=== PATIENT | female | born 1965 | race Caucasian/White ===

== ENCOUNTER 2022-08-08 17:56 | Emergency (ER) | payer OTHER, SELFPAY ==
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
[2022-08-08 18:46] VITALS: BP 142/70; PULSE 74; RESP 16; TEMP 36.1; O2SAT 100
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
[2022-08-08] MEDS: ACETAMINOPHEN 500 MG TABLET 1000 MG PO (21:22)
[2022-08-08 23:07] VITALS: TEMP 36.5
== END 2022-08-08 23:13 | disposition home or self-care (01) ==
PROVIDERS: Emergency Provider Emergency Medicine
DX: S16.1XXA Strain of muscle, fascia and tendon at neck level, initial encounter (principal); D32.0 Benign neoplasm of cerebral meninges; I67.2 Cerebral atherosclerosis; M50.322 Other cervical disc degeneration at C5-C6 level; V49.50XA Passenger injured in collision with unspecified motor vehicles in traffic accident, initial encounter
CPT/HCPCS: 70450; 72125; 99284; A9270

== ENCOUNTER 2022-09-02 08:45 | Outpatient (CLI) | payer OTHER, SELFPAY ==
--- NOTE | ~2022-09-02 | MR_ITS ---
EXAMINATION: MR brain/brain stem wo/w con DATE: 09/02/2022 09:25 INDICATION: Mass of brain. TECHNIQUE: Magnetic resonance imaging (MRI) of the brain and brainstem was performed without and with 12 mL MultiHance intravenous contrast. COMPARISON: Head CT 08/08/2022 FINDINGS: There is no intracranial hemorrhage or acute ischemic infarct. In the parafalcine right par ietal region, there is an 18 x 13 x 13 mm enhancing extra-axial mass, consistent with a meningioma. T here are scattered areas of nonspecific increased T2-weighted signal intensity in the cerebral white matter, which is within normal limits for the patient's age. The ventricles are normal in size. The o rbits are normal. The mastoid air cells are normal. The paranasal sinuses are clear. IMPRESSION: 1. 18 mm right parafalcine meningioma. Reviewed, dictated and finalized at location A. CAL DOCTOR
== END 2022-09-02 08:46 | disposition home or self-care (01) ==
PROVIDERS: PCP Student in an Organized Health Care Education/Training Program; Visit Provider Student in an Organized Health Care Education/Training Program
DX: G93.89 Other specified disorders of brain (principal)
CPT/HCPCS: 70553; A9577

== ENCOUNTER 2023-03-03 10:33 | Outpatient (CLI) | payer BC, SELFPAY ==
--- NOTE | ~2023-03-03 | CT_ITS ---
EXAMINATION: CT brain wo con DATE: 03/03/2023 11:49 INDICATION: Head injury. TECHNIQUE: Computed tomography (CT) of the head was performed without intravenous contrast. The mA wa s adjusted according to patient size. Iterative reconstruction technique was employed. The dose-lengt h product was 605.33 mGy-cm. COMPARISON: Head CT 08/08/2022, brain MRI 09/02/2022 FINDINGS: There is a 1.6 cm calcified extra-axial mass at the falx on the right adjacent to the parie pranav lobe, consistent with a meningioma. There is no intracranial hemorrhage or acute ischemic infarct . The ventricles are normal in size. The orbits are normal. The paranasal sinuses are clear. The mast oid air cells are normal. IMPRESSION: 1. Stable 1.6 cm calcified right parafalcine meningioma. Reviewed, dictated and finalized at location A.
== END 2023-03-03 10:34 | disposition home or self-care (01) ==
LOC: ANHIMG 10:39
PROVIDERS: PCP Student in an Organized Health Care Education/Training Program; Visit Provider Student in an Organized Health Care Education/Training Program
DX: S09.90XA Unspecified injury of head, initial encounter (principal); X58.XXXA Exposure to other specified factors, initial encounter
CPT/HCPCS: 70450

== ENCOUNTER 2024-03-01 14:16 | Outpatient (CLI) | payer BC, SELFPAY ==
--- NOTE | ~2024-03-01 | MM_ITS ---
EXAMINATION: MM screening arcadio BI w neli HISTORY: Screening mammogram TECHNIQUE: Craniocaudal and mediolateral oblique 3-D tomosynthesis images were obtained and synthetic 2-D images were generated. CAD analysis was submitted and interpreted. COMPARISON: 09/17/2019 bilateral screening mammogram BREAST PARENCHYMAL COMPOSITION: The breasts are extremely dense, which lowers the sensitivity of mamm ography. FINDINGS: There is no evidence of suspicious mass, calcification, or architectural distortion to sugg est malignancy in either breast. There has been no suspicious interval change. IMPRESSION: 1. No mammographic evidence of malignancy. 2. Recommend routine screening mammography in one year. BI-RADS Category 1: Negative Reviewed, dictated and finalized at location B.
== END 2024-03-01 14:17 | disposition home or self-care (01) ==
PROVIDERS: PCP Family Medicine; Visit Provider Family Medicine
DX: Z12.31 Encounter for screening mammogram for malignant neoplasm of breast (principal)
CPT/HCPCS: 77063; 77067

== ENCOUNTER 2024-05-27 08:17 | Outpatient (CLI) | payer BC, SELFPAY ==
--- NOTE | ~2024-05-27 | MR_ITS ---
EXAMINATION: MR brain/brain stem wo/w con DATE: 05/27/2024 09:11 INDICATION: Benign neoplasm of cerebral meninges. TECHNIQUE: Magnetic resonance imaging (MRI) of the brain and brainstem was performed without and with 12 mL MultiHance intravenous contrast. COMPARISON: Brain MRI 09/02/2022, head CT 03/03/2023 FINDINGS: There is no acute ischemic infarct or intracranial hemorrhage. There is a 2.0 x 1.5 x 1.5 c m right parietal parafalcine enhancing mass, consistent with a meningioma. There are scattered areas of nonspecific increased T2-weighted signal intensity in the cerebral white matter, which is within n ormal limits for the patient's age. The ventricles are normal in size. There is a right mastoid effus ion. The orbits are normal. The paranasal sinuses are clear. IMPRESSION: 1. 2.0 cm right parafalcine meningioma that measured 1.8 cm on 09/02/2022. Reviewed, dictated and finalized at location A.
== END 2024-05-27 08:18 | disposition home or self-care (01) ==
PROVIDERS: PCP Family Medicine; Visit Provider Neurological Surgery
DX: D32.0 Benign neoplasm of cerebral meninges (principal)
CPT/HCPCS: 70553; A9577

== ENCOUNTER 2025-03-19 13:35 | Outpatient (CLI) | payer BC, SELFPAY ==
--- OUTSIDE RECORDS SUMMARY | 2025-03-19 13:40 | XMS_ITS | Clinical Summary ---
Author Organization [facility] Address [address] [place] [id number] Care Team Providers Care Timber Harvester Operator Name Role Phone Tracy Fall MD Primary Care Provider [phone] Allergies Active Allergy Reactions Criticality Noted Date Comments Penicillins Rash Medium 06/05/2024 Medications No known medications Active Problems Problem Noted Date Diagnosed Date Screen for colon cancer 06/05/2024 Surgical History Surgery Date Site/Laterality Comments APPENDECTOMY ROTATOR CUFF REPAIR Bilateral pin in left shoulder Medical History Medical History Date Comments Chronic constipation Family History Medical History Relation Name Comments Colon polyps Brother Relation Name Status Comments Brother Social History Tobacco Use Types Packs/Day Years Used Date Smoking Tobacco: Never Smokeless Tobacco: Never Tobacco Cessation:Counseling Given: Not Answered AUDIT-C Answer Date Recorded Q1: How often do you have a drink containing alc ohol? 2-4 times a month 09/16/2024 Q2: How many drinks containi ng alcohol do you have on a typical day when you are drinking? 1 or 2 09/16/2024 Q3: How often do you have si x or more drinks on one occasion? Never 09/16/2024 Personal Safety Answer Date Recorded Have you ever been in or are you currently in a harmful physical or emotional relationship or is someone making you feel afraid or unsafe? Denies 09/16/2024 Comments No Sex and Gender Information Value Date Recorded Sex Assigned at Not on file Legal Sex Female 9:23 PM CDT Gender Identity Not on file Sexual Orientation Not on file Obstetrics History Last Filed Vital Signs Vital Sign Reading Time Taken Comments Blood Pressure 109/65 09/16/2024 2:20 PM VEHICLE UPHOLSTERER Pulse 68 09/16/2024 2:20 PM VEHICLE UPHOLSTERER Temperature 36.3 C (97.4 F) 09/16/2024 2:01 PM VEHICLE UPHOLSTERER Respiratory Rate 16 09/16/2024 2:20 PM VEHICLE UPHOLSTERER Oxygen Saturation 99% 09/16/2024 2:20 PM VEHICLE UPHOLSTERER Inhaled Oxygen Concentration - - Weight 65.8 kg (145 lb) 09/16/2024 1:25 PM VEHICLE UPHOLSTERER Height 152.4 cm (5') 09/16/2024 1:25 PM VEHICLE UPHOLSTERER Body Mass Index 28.32 09/16/2024 1:25 PM VEHICLE UPHOLSTERER Plan of Treatment Health Maintenance Due Date Last Done Comments Breast Cancer Screening-Mammogram 1965 Cervical Cancer Screening 1965 Depression Screening 1965 Hepatitis C Screening 1965 DTaP/Tdap/Td Vaccine (1 - Tdap) 1974 Hepatitis B Screening 1981 Regular Well Visit/Exam 18-64 1981 Zoster Vaccine (1 of 2) 2013 Influenza Vaccine (Season Ended) 2025 Colon Cancer Screening-Colonoscopy 09/16/20342023 Pneumococcal vaccine <65 Aged Out No longer eligible based on patient's age to complete this topic Procedures Procedure Name Priority Date/Time Associated Diagnosis Comments COLONOSCOPY 09/16/2024 1:25 PM VEHICLE UPHOLSTERER from Last 3 Months or Most Recently Relevant to Health Maintenance Results * Colonoscopy (09/16/2024 1:25 PM VEHICLE UPHOLSTERER) Anatomical Region Laterality Modality Other Narrative Procedure Note Abdirashid Abarca MD - 09/16/2024 1:[address] [facility] GI Lab Report Patient Name: Procedure Date: 09/16/2024 1:25 PM Date of : 1965 Admit Type: Outpatient Age: 58 Gender: Female Note Status: Finalized Attending MD: Abdiarshid Abarca M.D. Procedure: Colonoscopy Procedure Date: 09/16/2024 1:25:43 PM Indications: [facility]: Family history of 1st-degree relative with colon polyps at age 60 years (or older) - brother withcolon polyps in his 70s, This is the patient's first colonoscopy Providers: Abdirashid Abarca M.D. Referring Physician: Tracy Fall M.D. Medicines: Monitored Anesthesia Care Complications: No immediate complications. Procedure: Pre-Anesthesia Assessment: - Artificial Intelligence (AI) was used during this examination, using GI Genius. - Prior to the procedure, a History and Physicalwas performed, and patient medications and allergieswere reviewed. The patient's tolerance of previous anesthesia was also reviewed. The risks andbenefits of the procedure and the sedation options and risks were discussed with the patient. All questions were answered, and informed consent was obtained. Prior Anticoagulants: The patient has taken noanticoagulant or antiplatelet agents. ASA Grade Assessment: II -A patient with mild systemic disease. After reviewing the risks and benefits, the patient was deemed in satisfactory condition to undergo the procedure. - The risks and benefits of the procedure and the sedation options and risks were discussed with the patient. All questions were answered and informed consent was obtained. - Patient identification and proposed procedurewere verified prior to the procedure by the physician,the nurse, the anesthesiologist and the glass etcher.The procedure was verified in the pre-procedure area in the procedure room in the endoscopy suite. - After reviewing the risks and benefits, thepatient was deemed in satisfactory condition to undergo the procedure. - The anesthesia plan was to use monitoredanesthesia care (MAC). The benefits, risks and alternatives of theprocedure and sedation were discussed and informed consentwas obtained. All questions were answered. Please referto the signed informed consent document in the medical record. The scope was passed under direct vision.The Colonoscope was introduced through the anus and advanced to the the terminal ileum, with identification of the appendiceal orifice and IC valve. The colonoscopy was performed without difficulty. The patient tolerated the procedurewell. The quality of the bowel preparation was good. The bowel preparation used was GoLYTELY via split dose instruction. The terminal ileum, ileocecal valve, appendiceal orifice, and rectum werephotographed. Findings: Skin tags were found on perianal exam. The terminal ileum appeared normal. Two sessile polyps were found in the descending colon and ascending colon. The polyps were 5 to 9 mm in size. These polyps were removedwith a cold snare. Resection and retrieval were complete. Scattered small-mouthed diverticula were found in the sigmoidcolon. Internal hemorrhoids were found during retroflexion. The hemorrhoids were small and Grade I (internal hemorrhoids that do not prolapse). The exam was otherwise without abnormality. Estimated Blood Loss: Estimated blood loss: none. Impression: - Perianal skin tags found on perianal exam. - The examined portion of the ileum was normal. - Two 5 to 9 mm polyps in the descending colon andin the ascending colon, removed with a cold snare. Resected and retrieved. - Diverticulosis in the sigmoid colon. - Internal hemorrhoids. - The examination was otherwise normal. Recommendation: - Patient has a contact number available for emergencies. The signs and symptoms of potential delayed complications were discussed with thepatient. Return to normal activities tomorrow. Written discharge instructions were provided to thepatient. - High fiber diet. - Continue present medications. - Await pathology results. - Repeat colonoscopy in 5 years for surveillancebased on pathology results. - Return to GI office PRN. Procedure Code(s): --- Professional --- 20717, 33 Diagnosis Code(s): --- Professional --- Z83.71 D12.4 D12.2 K57.30 K64.0 K64.4 CPT copyright 2020 [employer]. All rights reserved. Signed electronically by Dr Abarca Abdirashid Abarca M.D. 09/16/2024 2:02:30 PM This report has been signed electronically. Number of Addenda: 0 Note Initiated On: 09/16/2024 1:25 PM Abdirashid Abarca MD ENDOSCOPY PROCEDURES Final Resu lt from Last 3 Months or Most Recently Relevant to Health Maintenance Insurance [employer] ACCESS CHOICE [employer] ACCESS CHOICE Advance Directives For more information, please contact: [phone] * Full Code (Latest Code Status on File) Date Activated Date Inactivated Comments 09/16/2024 1:25 PM 09/16/2024 6:40 PM Care Teams Timber Harvester Operator Relationship Specialty Start Date End Date Tracy Fall MD [address] [place] [address] PCP - General Family Medicine 05/25/24
--- OUTSIDE RECORDS SUMMARY | 2025-03-19 13:40 | XMS_ITS | Referral Summary ---
Author Organization [address] Address [address] [place] [id number] Care Team Providers Care Dust Mop Maker Name Role Phone Tracy Fall MD Primary Care Provider [phone] Allergies Active Allergy Reactions Criticality Noted Date Comments Penicillins Rash Medium 06/05/2024 Medications No known medications Active Problems Problem Noted Date Diagnosed Date Screen for colon cancer 06/05/2024 Social History Tobacco Use Types Packs/Day Years [...] on file Sexual Orientation Not on file Last Filed Vital Signs Vital Sign Reading Time Taken Comments Blood Pressure 109/65 09/16/2024 2:20 PM CANINE DEPUTY Pulse 68 09/16/2024 2:20 PM CANINE DEPUTY Temperature 36.3 C (97.4 F) 09/16/2024 2:01 PM CANINE DEPUTY Respiratory Rate 16 09/16/2024 2:20 PM CANINE DEPUTY Oxygen Saturation 99% 09/16/2024 2:20 PM CANINE DEPUTY Inhaled Oxygen Concentration - - Weight 65.8 kg (145 lb) 09/16/2024 1:25 PM CANINE DEPUTY Height 152.4 cm (5') 09/16/2024 1:25 PM CANINE DEPUTY Body Mass Index 28.32 09/16/2024 1:25 PM CANINE DEPUTY Plan of Treatment Not on file Procedures Procedure Name Priority Date/Time Associated Diagnosis Comments COLONOSCOPY 09/16/2024 1:25 PM CANINE DEPUTY from Last 3 Months or Most Recently Relevant to Health Maintenance Results * Colonoscopy (09/16/2024 1:25 PM CANINE DEPUTY) Anatomical Region Laterality Modality Other Narrative Procedure Note Abdirashid Abarca MD - 09/16/2024 1:25 PM CST [facility] GI Lab Report Patient Name: Procedure Date: 09/16/2024 1:25 PM Date of : 1965 Admit Type: Outpatient Age: 58 Gender: Female Note Status: Finalized Attending MD: Abdirashid Abarca M.D. Procedure: Colonoscopy Procedure Date: 09/16/2024 1:25:43 PM Ind[facility] Family history of 1st-degree relative with colon [...] the physician,the nurse, the anesthesiologist and the volleyball assistant coach.The procedure was verified in the pre-procedure area [...] office PRN. Procedure Code(s): --- Professional --- 42252, 33 Diagnosis Code(s): --- Professional --- Z83.71 D12.4 D12.2 K57.30 K64.0 K64.4 CPT copyright 2020 [employer]. All rights reserved. Signed electronically by Dr Abarca Abdirashid Abarca M.D. 09/16/2024 2:02:30 PM This report has been signed electronically. Number of Addenda: 0 Note Initiated On: 09/16/2024 1:25 PM Abdirashid Abarca MD ENDOSCOPY PROCEDURES Final Resu lt from Last 3 Months or Most Recently Relevant to Health Maintenance Insurance [employer] ACCESS CHOICE [facility] ACCESS CHOICE Advance Directives For more information, please contact: [phone] * Full Code (Latest Code Status on File) Date Activated Date Inactivated Comments 09/16/2024 1:25 PM 09/16/2024 6:40 PM Care Teams Dust Mop Maker Relationship Specialty Start Date End Date Tracy Fall MD [address] [place] [address] PCP - General Family Medicine 05/25/24
--- OUTSIDE RECORDS SUMMARY | 2025-03-19 13:40 | XMS_ITS | CONTINUITY OF CARE DOCUMENT ---
Author Name mika, mika Address Unknown Organization [facility] Address [address] [place] [address] Phone [phone] Care Team Providers Care Staple Processing Machine Operator Name Role Phone Faviola TO, Leonardo Unavailable [phone] MARCIA TO, DULCE Kline Unavailable [phone] VITAL SIGNS Date Observation Value Provider blood pressure, diastolic 78 mm[Hg] Ta norbert Jason blood pressure, systolic 126 mm[Hg] Waytt Gomez SOCIAL HISTORY Date Observation Value Provider smoking status quit Sepideh Gomez FUNCTIONAL STATUS Date Observation Value Provider periodic limb movement index absent (0) Sepideh Gomez INSURANCE PROVIDERS Payer name Policy type / Coverage type [employer]ard red democrat [id number] Commercial insurance company 0 [id number]
--- NOTE | 2025-03-19 14:00 | NEURO_ITS ---
Impression: # Complains of nocturnal paresthesia/pain in right hand. Non- diabetic. ? # Right Carpal Tunnel Syndrome, sensory more than motor. ? # No ulnar neuropathy. ? # Normal needle/EMG exam. ?Nerve Conduction Studies Anti Sensory Summary Table ?Stim Site NR Peak (ms) P-T Amp (?V) Site1 Site2 Delta-P (ms) Dist (cm) Minh (m/s) Right Median Anti Sensory (2-3nd Digit) Wrist ? 4.6 32.4 Wrist 2-3nd Digit 4.6 14.0 30 Wrist ? 5.3 22.3 Wrist 2-3nd Digit 4.6 14.0 30 Right Radial Anti Sensory (Base 1st Digit) Wrist ? 2.4 21.9 Wrist Base 1st Digit 2.4 0.0 Right Ulnar Anti Sensory (5th Digit) Wrist ? 2.9 78.4 Wrist 5th Digit 2.9 14.0 48 Motor Summary Table ?Stim Site NR Onset (ms) O-P Amp (mV) Site1 Site2 Delta-0 (ms) Dist (cm) Minh (m/s) Right Median Motor (Abd Poll Brev) Wrist ? 4.1 8.2 Elbow Wrist 5.4 27.0 50 Elbow ? 9.5 4.7 Right Ulnar Motor (Abd Dig Minimi) Wrist ? 2.6 8.9 A Elbow Wrist 4.8 26.0 54 A Elbow ? 7.4 7.1 B Elbow Wrist 3.3 18.0 55 B Elbow ? 5.9 7.7 F Wave Studies ?NR F-Lat (ms) L-R F-Lat (ms) Right Median (Mrkrs) (Abd Poll Brev) ? 29.42 Right Ulnar (Mrkrs) (Abd Dig Min) ? 28.81 EMG ?Side Muscle Nerve Root Ins Act Fibs Amp Dur Recrt Comment Right 1stDorInt Ulnar C8-T1 Nml Nml Nml Nml Nml Right Ext Indicis Radial (Post Int) C7-8 Nml Nml Nml Nml Nml Right Ext Digitorum Radial (Post Int) C7-8 Nml Nml Nml Nml Nml Right BrachioRad Radial C5-6 Nml Nml Nml Nml Nml Right PronatorTeres Median C6-7 Nml Nml Nml Nml Nml Right Abd Poll Brev Median C8-T1 Nml Nml Nml Nml Nml Right ABD Dig Min Ulnar C8-T1 Nml Nml Nml Nml Nml Right FlexPolLong Median (Ant Int) C7-8 Nml Nml Nml Nml Nml Right Abd Poll Long Radial (Post Int) C7-8 Nml Nml Nml Nml Nml
== END 2025-03-19 13:36 | disposition home or self-care (01) ==
PROVIDERS: PCP Family Medicine; Visit Provider Physician Assistant Surgical
DX: G56.01 Carpal tunnel syndrome, right upper limb (principal)
CPT/HCPCS: 95886; 95909

== ENCOUNTER 2025-04-02 00:25 | Day surgery (SDC) | payer BC, SELFPAY ==
[2025-03-21 09:21] VITALS: BMI 26.6
--- NOTE | 2025-03-21 09:29 | PC.NURSE ---
Report to the Outpatient Waiting Room, entrance under the green pavilion located off [facility], at time _1230__ on date _04/02/25_. Planned Procedure Time: __1430_.? Time changes happen often and if your time is changed the preop area will call you the afternoon before. - You and your visitor will be asked to self-screen and do not enter if you have any COVID symptoms. Please call surgeon if you need to reschedule. - A mask is optional within the hospital at this time. Patients may have clear liquids (water, carbonated beverages, clear teas, apple juice) until 8 hours prior to surgery with a maximum of 20 ounces. - No food from midnight until time of surgery and no smoking, or chewing tobacco (or any form of nicotine). No chewing gum, candy or mints. - Infants may have breast milk until 4 hours before surgery, infant formula 6 hours prior to surgery. - Children will be allowed to drink immediately following surgery.? If applicable, please bring a bottle or sippy cup to assist with drinking. Juice, water, soda, and popsicles are readily available.? For infants on formula, please bring formula the day of surgery.? Pacifiers are allowed. Take only the following medications with a SIP of water on the morning of surgery: NONE DO NOT STOP ANY OF YOUR OTHER PRESCRIPTION MEDICATIONS PRIOR TO SURGERY EXCEPT THE FOLLOWING Hold all vitamins and supplements for 3 days per anesthesiologist. Medications to discontinue per physician ALEVE Date to take last dose 03/30/25 Please no make-up, nail greek, hairspray, perfume, deodorant, or body powder the day of surgery.? No jewelry (including any body piercings) or valuables the day of surgery, leave them at home.? Please take a shower or bath the night before, or the morning of, surgery with an antibacterial soap.? Wear comfortable, loose fitting clothing.? Children are encouraged to wear pajamas. - Jewelry must be removed prior to entering the operating room.? Rings and piercings that are not removed may be cut off. - The hospital will not accept responsibility for valuables.? - Please leave all valuables, including medications, at home the day of surgery. If you are going home after surgery, a licensed combine driver must drive you home.? - NO public transportation without another adult if you receive anesthesia. - We recommend that an adult stay with you for 24 hours following discharge. - We also recommend that you do not drive, make important decision, drink alcoholic beverages, or take any drugs that were not prescribed by your health care provider for at least 24 hours after your discharge time. For Pediatric surgeries, we recommend two adults accompany the child home. Follow any additional instructions given to you from your surgeon. Telephone instructions given to _PATIENT__and asked if any additional questions and then verbalized understanding. Patient advised to call surgeon office or pre surgery nurse liaison [phone] if any additional questions.
--- OUTSIDE RECORDS SUMMARY | 2025-04-02 00:29 | XMS_ITS | Clinical Summary ---
Author Organization [facility] Address [address] [place] [id number] Care Team Providers Care [employer] Learning Support Teacher Name Role Phone Tracy Fall MD Primary Care Provider [phone] Allergies Active Allergy Reactions Criticality Noted Date [...] Comments Blood Pressure 109/65 09/16/2024 2:20 PM BELT LACER Pulse 68 09/16/2024 2:20 PM BELT LACER Temperature 36.3 C (97.4 F) 09/16/2024 2:01 PM BELT LACER Respiratory Rate 16 09/16/2024 2:20 PM BELT LACER Oxygen Saturation 99% 09/16/2024 2:20 PM BELT LACER Inhaled Oxygen Concentration - - Weight 65.8 kg (145 lb) 09/16/2024 1:25 PM BELT LACER Height 152.4 cm (5') 09/16/2024 1:25 PM BELT LACER Body Mass Index 28.32 09/16/2024 1:25 PM BELT LACER Plan of Treatment Health Maintenance Due Date [...] Associated Diagnosis Comments COLONOSCOPY 09/16/2024 1:25 PM BELT LACER from Last 3 Months or Most Recently Relevant to Health Maintenance Results * Colonoscopy (09/16/2024 1:25 PM BELT LACER) Anatomical Region Laterality Modality Other Narrative Procedure Note Abdirashid Abarca MD - 09/16/2024 1:25 PM CST [facility] GI Lab Report Patient Name: Procedure Date: 09/16/2024 1:25 PM Date of : 1965 Admit Type: Outpatient Age: 58 Gender: Female Note Status: Finalized Attending MD: Abdirashid Abarca M.D. Procedure: Colonoscopy Procedure Date: 09/16/2024 1:25:43 PM Indications: [facility] Family history of 1st-degree relative with [...] the physician,the nurse, the anesthesiologist and the field sampling technician.The procedure was verified in the pre-procedure area [...] office PRN. Procedure Code(s): --- Professional --- 76489, 33 Diagnosis Code(s): --- Professional --- Z83.71 D12.4 D12.2 K57.30 K64.0 K64.4 CPT copyright 2020 [employer]. All rights reserved. Signed electronically by Dr Abarca Abdirashid Abarca M.D. 09/16/2024 2:02:30 PM This report has been signed electronically. Number of Addenda: 0 Note Initiated On: 09/16/2024 1:25 PM Abdirashid Abarca MD ENDOSCOPY PROCEDURES Final Resu lt from Last 3 Months or Most Recently Relevant to Health Maintenance Insurance [employer] ACCESS CHOICE [facility] ACCESS CHOICE Advance Directives For more information, please contact: [phone] * Full Code (Latest Code Status on File) Date Activated Date Inactivated Comments 09/16/2024 1:25 PM 09/16/2024 6:40 PM Care Teams [employer] Learning Support Teacher Relationship Specialty Start Date End Date Tracy Fall MD [address] [place] [address] PCP - General Family Medicine 05/25/24
--- OUTSIDE RECORDS SUMMARY | 2025-04-02 00:29 | XMS_ITS | Referral Summary ---
Author Organization [facility] Address [address] [place] [id number] Care Team Providers Care Bakery [employer] Del[employer] Sales Manager Name Role Phone Tracy Fall MD Primary Care Provider [phone] Allergies Active Allergy Reactions Criticality Noted Date [...] Comments Blood Pressure 109/65 09/16/2024 2:20 PM CHEMICAL LABORATORY TESTER Pulse 68 09/16/2024 2:20 PM CHEMICAL LABORATORY TESTER Temperature 36.3 C (97.4 F) 09/16/2024 2:01 PM CHEMICAL LABORATORY TESTER Respiratory Rate 16 09/16/2024 2:20 PM CHEMICAL LABORATORY TESTER Oxygen Saturation 99% 09/16/2024 2:20 PM CHEMICAL LABORATORY TESTER Inhaled Oxygen Concentration - - Weight 65.8 kg (145 lb) 09/16/2024 1:25 PM CHEMICAL LABORATORY TESTER Height 152.4 cm (5') 09/16/2024 1:25 PM CHEMICAL LABORATORY TESTER Body Mass Index 28.32 09/16/2024 1:25 PM CHEMICAL LABORATORY TESTER Plan of Treatment Not on file Procedures Procedure Name Priority Date/Time Associated Diagnosis Comments COLONOSCOPY 09/16/2024 1:25 PM CHEMICAL LABORATORY TESTER from Last 3 Months or Most Recently Relevant to Health Maintenance Results * Colonoscopy (09/16/2024 1:25 PM CHEMICAL LABORATORY TESTER) Anatomical Region Laterality Modality Other Narrative Procedure Note Abdirashid Abarca MD - 09/16/2024 1:25 PM CST [facility] GI Lab Report Patient Name: Procedure Date: 09/16/2024 1:25 PM Date of : 1965 Admit Type: Outpatient Age: 58 Gender: Female Note Status: Finalized Attending MD: Abdirashid Abarca M.D. Procedure: Colonoscopy Procedure Date: 09/16/2024 1:25:43 PM Indications: [facility] Family history of 1st-degree relative with [...] the physician,the nurse, the anesthesiologist and the smelter operator.The procedure was verified in the pre-procedure area [...] office PRN. Procedure Code(s): --- Professional --- 59404, 33 Diagnosis Code(s): --- Professional --- Z83.71 D12.4 D12.2 K57.30 K64.0 K64.4 CPT copyright 2020 [employer]. All rights reserved. Signed electronically by Dr Abarca Abdirashid Abarca M.D. 09/16/2024 2:02:30 PM This report has been signed electronically. Number of Addenda: 0 Note Initiated On: 09/16/2024 1:25 PM Abdirashid Abarca MD ENDOSCOPY PROCEDURES Final Resu lt from Last 3 Months or Most Recently Relevant to Health Maintenance Insurance [employer] ACCESS CHOICE [facility] ACC[facility] Advance Directives For more information, please contact: [phone] * Full Code (Latest Code Status on File) Date Activated Date Inactivated Comments 09/16/2024 1:25 PM 09/16/2024 6:40 PM Care Teams Bakery And Deli Sales Manager Relationship Specialty Start Date End Date Tracy Fall MD [address] [place] [address] PCP - General Family Medicine 05/25/24
--- NOTE | 2025-04-02 06:58 | PM.HPGS ---
History of Present Illness History of Present Illness Chief complaint: right ring and middle trigger finger Narrative: Patient seen and examined in pre-operative holding area. No interval change in medical history or symptoms. Patient recalls previous discussion of benefits and alternatives to procedure. Continues to desire to proceed with right endoscopic possible open carpal tunnel release, right middle and ring finger a1 sukumar release. Reviewed procedure, post-op expectations and risks including but not limited to bleeding, infection, injury to tendon/nerve/vessel, decreased hand function, stiffness, RSD, no change or worsening of symptoms. I discussed the possible use of assistants and their participation in the case. Patient stated understanding and signed the consent form wishing to proceed. Review of Systems Review of Systems: All systems reviewed & are unremarkable except as noted in HPI and below PMFSH Past Medical History Medical History No active medical problems Surgical History Surgical History H/O shoulder surgery Family History Family History Other Breast cancer Heart disease Social History Social History Smoking status: Never smoker Alcohol intake: current Drinks per week: 1 Substance use: never Substance use type: does not use Do You Feel Safe in your Home?: Yes Lack of Transportation: No Lack of Food: Sometimes True Current Housing: Decline to Answer Concerned About Future Housing: Decline to Answer Difficulty Paying Gas/Electric Bills: Decline to Answer Difficulty Paying for Meds: Decline to Answer Currently Unemployed: Decline to Answer Education: Associate Degree Difficulty w/ Childcare or Family Care: Decline to Answer Living arrangements: with family Occupation/Education: occupation Meds Home Medications and Allergies Home Medications ?Medication ?Instructions ?Recorded ?Confirmed ?Type naproxen sodium 220 mg capsule 220 mg PO BID PRN pain 03/21/25 03/21/25 History (Garrick) tramadol 50 mg tablet 50 mg PO Q6H PRN pain #12 tabs 04/02/25 Rx Allergies Allergy/AdvReac Type Severity Reaction Status Date / Time Penicillins Allergy Unknown Rash Verified 03/21/25 09:19 Exam Narrative: unchanged Assessment and Plan Assessment and plan (1) Trigger finger: Qualifiers: Laterality: right Trigger finger location: unspecified finger Qualified Code(s): M65.30 - Trigger finger, unspecified finger Code(s): M65.30 - Trigger finger, unspecified finger Status: Acute Assessment and Plan: cont as above
--- NOTE | 2025-04-02 06:59 | P.OP_ITS ---
Procedure Note - Detailed Date of Procedure 04/02/25 Pre-op Diagnosis right carpal tunnel syndrome, right ring and middle trigger finger Post-op Diagnosis Same Procedure Performed right ectr right middle and ring finger a1 sukumar release Surgeon Narayan Gallego MD Tie Man patricia recinos pa-c Anesthesia MAC Description of Procedure INFORMED CONSENT: The patient was seen and examined and marked in the pre-op area.? The patient signed the consent form. PROCEDURE IN DETAIL:The patient taken back to OR on the stretcher in supine position. Time out performed with anesthesia, surgeon and staff agreeing on patient's name site and surgery to be performed SCDs were placed on the lower extremities and inflated. A tourniquet was placed on {right} upper extremity and antibiotics given IV After anesthesia administered sedation I injected {6}cc 1%lido and 0.5% marcaine plain at the operative sites The?{right upper extremity}?was prepped and draped in sterile fashion the??{right upper extremity} was? exsanguinated with Esmarch bandage and tourniquet inflated to 250mmHg I made a transverse incision in the {right} volar distal wrist crease through skin and dermis with 15 blade scalpel.? Littler scissors spread down to antebrachial fascia. A small incision was made in antebrachial fascia allowing access to Carpal tunnel. I proceeded with sequential dilation staying in line with the ring finger and hugging the hook of the hamate.? I then used the synovial elevator to free any adhesions from the underside of the transverse carpal ligament. Next I was able to insert the Microaire endoscopic carpal tunnel device with direct visualization of the transverse fibers on the monitor and proceeded with complete segmental retrograde release of the ligament in its entirety.? I irrigated with normal saline and closed with 4-0 monocryl for dermis and subcuticular closure. I proceeded with making a longitudinal incision over the right ring finger A1 sukumar through skin and dermis with a 15 blade scalpel. Littler scissors were used to spread through subcutaneous tissue down to the A1 sukumar. The A1 sukumar was identified initially incised with 15 blade scalpel. Littler scissors were used to spread above it and below it proximally and distally completing the transection entirely. Ragnell retractor was used withdrawal the FDS and FDP tendon for inspection. The tendons were free of masses and synovitis and gliding smoothly and the sheath without triggering or crepitus. I irrigated with normal saline and closed with 4-0 chromic. I next proceeded with making a longitudinal incision over the right middle finger A1 sukumar through skin and dermis with a 15 blade scalpel. Littler scissors were used to spread through subcutaneous tissue down to the A1 sukumar. The A1 sukumar was identified initially incised with 15 blade scalpel. Littler scissors were used to spread above it and below it proximally and distally completing the transection entirely. Ragnell retractor was used withdrawal the FDS and FDP tendon for inspection. The tendons were free of masses and synovitis and gliding smoothly and the sheath without triggering or crepitus. I irrigated with normal saline and closed with 4-0 chromic. A dressing of xeroform, 4x4, maliha, and an shima bandage was applied after the tourniquet was let down noting the hand was warm and well perfused. The patient was then awaken from anesthesia and transferred to the recovery room in stable condition.? Complications - none EBL- 0cc Disposition - home in stable condition Patricia Recinos PA-C was essential for positioning, retraction, closure and dressing placement [facility] [place] Billing Surgery - Charge Forward: Surgery Billing ([id number] same for patricia rolon )
[2025-04-02] MEDS: LACTATED RINGERS 1,000 ML 30 ML IV CONT (11:30)
[2025-04-02 12:00] VITALS: BP 127/69; PULSE 59; RESP 14; TEMP 36.6; O2SAT 100
--- NOTE | 2025-04-02 12:07 | P.PNAN_ITS ---
Anes - Initial Pre Proc Eval Procedure: Operation Date: 04/02/25 12:30 Proposed Procedures p Right Ring and Middle Trigger Finger Release - Narayan Gallego MD s Right Endoscopic Carpal Tunnel Release, Possible Open - Narayan Gallego MD Date/Time: 04/02/25 12:07 Surgeon: Narayan Gallego MD Pre Op Diagnosis: right ring and middle trigger finger Patient Data Age: 59 Gender: F Height: 1.52 m Weight: 62 kg Allergies Allergy/AdvReac Type Severity Reaction Status Date / Time Penicillins Allergy Unknown Rash Verified 03/21/25 09:19 Home Medications ?Medication ?Instructions ?Recorded ?Confirmed ?Type naproxen sodium 220 mg capsule 220 mg PO BID PRN pain 03/21/25 03/21/25 History (Aleve) tramadol 50 mg tablet 50 mg PO Q6H PRN pain #12 tabs 04/02/25 Rx Patient hx anesthesia problems: none Family hx anesthesia problems: none Results Review: All pre-operative results and documents have been reviewed as part of the pre- operative evaluation. [facility] Past Medical History Medical History No active medical problems Surgical History Surgical History H/O shoulder surgery Family History Family History Other Breast cancer Heart disease Social History Social History Smoking status: Never smoker Alcohol intake: current Drinks per week: 1 Substance use: never Substance use type: does not use Do You Feel Safe in your Home?: Yes Lack of Transportation: No Lack of Food: Sometimes True Current Housing: Decline to Answer Concerned About Future Housing: Decline to Answer Difficulty Paying Gas/Electric Bills: Decline to Answer Difficulty Paying for Meds: Decline to Answer Currently Unemployed: Decline to Answer Education: Associate Degree Difficulty w/ Childcare or Family Care: Decline to Answer Living arrangements: with family Occupation/Education: occupation Anes - Eval Final PreProcedure Day of Procedure 04/02/25 12:07 Patient weight: normal Heart: regular rate and rhythm Lungs: clear to auscultation Airway: Mallampati scale class II Neurological: alert and oriented Last oral intake: >/= 8 hours ASA classification: II Emergent: no Anesthetic plan: proceed Anesthesia type and monitoring: general GIVS and standard monitoring Results Review: All pre-operative results and documents have been reviewed as part of the pre- operative evaluation. Informed Consent: The patient's anesthetic plan and its attendant risks and benefits were discussed with the patient/family/POA. Questions were solicited and answers provided to the satisfaction of the patient/family/POA.
[2025-04-02] MEDS: ceFAZolin 2 GM/D5W 50 ML 2 GM/50 ML BAG IVPB (12:21)
[2025-04-02] MEDS: LIDOCAINE 1% LOCAL INJ 10 ML VIAL 4 ML INFILTRATE (12:27)
[2025-04-02] MEDS: LIDO 1%/EPINEPHRINE 1:100,000 50 ML VIAL INFILTRATE (12:28)
[2025-04-02] MEDS: BUPivacaine HCL 0.5% 10 ML AMP 1.5 ML INFILTRATE (12:33)
[2025-04-02 12:48] VITALS: BP 105/48; PULSE 93; RESP 12; O2SAT 98
[2025-04-02 13:15] VITALS: BP 116/61; PULSE 65; RESP 12
== END 2025-04-02 13:34 | disposition home or self-care (01) ==
PROVIDERS: PCP Family Medicine; Visit Provider Plastic Surgery
PROC: (CPT 26055; principal; 2025-04-02 12:30)
PROC: 01N54ZZ Release Median Nerve, Percutaneous Endoscopic Approach (ICD-10-PCS; CPT 29848; 2025-04-02 12:30)
DX: M65.341 Trigger finger, right ring finger (principal); M65.331 Trigger finger, right middle finger; Z79.1 Long term (current) use of non-steroidal anti-inflammatories (NSAID); Z79.891 Long term (current) use of opiate analgesic; Z98.890 Other specified postprocedural states; Z80.3 Family history of malignant neoplasm of breast; Z82.49 Family history of ischemic heart disease and other diseases of the circulatory system
CPT/HCPCS: 29848; 26055; A9270; J0690; J2003; J2004; J2704; J3010; J7120